=== PATIENT | male | born 1960 | race Caucasian/White ===

== ENCOUNTER 2017-05-15 02:30 | Emergency (ER) | payer OTHER ==
[~2017-05-15] VITALS: Ht 172.7 cm; Wt 65.8 kg
[~2017-05-15 02:30] MED LIST: ACIDOPHILUS1 EAC2 PO; CARAFATE 1 GM TA1 G1 PO; CIPROFLOXACIN500 M1 PO; DULCOLAX5 MG PO; FLEET ENEMA118 ML RC; FLEXERIL PO; HYDROCODONE-IB1 EACH PO; IBUPROFEN 800800 MG PO; NOHOMEMEDICATIONS; NORCO 5-325 TA1 EACH PO; OXYCODONE HCL 55 MG PO; OXYCODONE HCL5 M1 PO; PROTONIX40 M2 PO; VEETIDS 500500 MG; VICODIN 5-5001 EACH PO; VICOPROFEN 2001 EACH PO; VITAMIN B-12500 MCG PO; VITAMIN C500 MG/15 PO; ZANTAC 150MG T150 M1 PO
[2017-05-15] MEDS ORDERED: MILK THISTLE1 GM PO (02:41)
[2017-05-15] MEDS ORDERED: FISH OIL 1,001000 M2 PO (02:41)
[2017-05-15] MEDS ORDERED: B COMPLEX1 EACH PO (02:41)
[2017-05-15] MEDS ORDERED: NAPROSYN500 MG PO (03:39)
[2017-05-15 03:48] VITALS: BP 142/88
== END 2017-05-15 03:50 | disposition home or self-care (01) ==
LOC: ER 02:30
DX: S20.212A Contusion of left front wall of thorax, initial encounter (principal); K59.00 Constipation, unspecified; Z59.0 Homelessness; F10.99 Alcohol use, unspecified with unspecified alcohol-induced disorder; J44.9 Chronic obstructive pulmonary disease, unspecified; G89.29 Other chronic pain; M54.9 Dorsalgia, unspecified; Z86.19 Personal history of other infectious and parasitic diseases; Z88.6 Allergy status to analgesic agent; Z88.8 Allergy status to other drugs, medicaments and biological substances; W18.39XA Other fall on same level, initial encounter; Y93.89 Activity, other specified; Y92.89 Other specified places as the place of occurrence of the external cause; Y99.8 Other external cause status

== ENCOUNTER 2017-12-03 00:25 | Emergency (ER) | payer OTHER ==
[~2017-12-03] VITALS: Ht 172.7 cm; Wt 65.8 kg
[~2017-12-03 00:25] MED LIST changes: +B COMPLEX1 EACH PO; +FISH OIL 1,001000 M2 PO; +MILK THISTLE1 GM PO; +NAPROSYN500 MG PO; +TRAMADOL 50 MG50 MG PO
[2017-12-03 02:42] VITALS: BP 132/60
== END 2017-12-03 02:44 | disposition home or self-care (01) ==
LOC: ER 00:25
DX: F10.129 Alcohol abuse with intoxication, unspecified (principal); J44.9 Chronic obstructive pulmonary disease, unspecified; G89.29 Other chronic pain; M54.9 Dorsalgia, unspecified; M25.511 Pain in right shoulder; Z87.891 Personal history of nicotine dependence; Z88.6 Allergy status to analgesic agent; Z88.8 Allergy status to other drugs, medicaments and biological substances

== ENCOUNTER 2017-12-10 22:30 | Emergency (ER) | payer OTHER ==
[~2017-12-10] VITALS: Ht 172.7 cm; Wt 68.0 kg
[2017-12-11] MEDS ORDERED: FLEXERIL PO (00:22)
[2017-12-11 00:58] VITALS: BP 109/78
== END 2017-12-11 01:05 | disposition home or self-care (01) ==
LOC: ER 22:30
DX: S70.02XA Contusion of left hip, initial encounter (principal); S70.12XA Contusion of left thigh, initial encounter; J44.9 Chronic obstructive pulmonary disease, unspecified; I10 Essential (primary) hypertension; M54.9 Dorsalgia, unspecified; G89.29 Other chronic pain; Z87.891 Personal history of nicotine dependence; Z88.1 Allergy status to other antibiotic agents; W10.9XXA Fall (on) (from) unspecified stairs and steps, initial encounter; Y93.89 Activity, other specified; Y92.89 Other specified places as the place of occurrence of the external cause; Y99.8 Other external cause status

== ENCOUNTER 2018-07-03 23:44 | Emergency (ER) | payer OTHER ==
[~2018-07-03] VITALS: Ht 172.7 cm; Wt 65.8 kg
[2018-07-04] MEDS ORDERED: IBUPROFEN 600600 M1 PO (00:05)
[2018-07-04 05:58] VITALS: BP 132/76
== END 2018-07-04 06:11 | disposition home or self-care (01) ==
LOC: ER 23:44
DX: M54.42 Lumbago with sciatica, left side (principal); M54.41 Lumbago with sciatica, right side; J44.9 Chronic obstructive pulmonary disease, unspecified; I10 Essential (primary) hypertension; Z87.891 Personal history of nicotine dependence; Z88.6 Allergy status to analgesic agent; Z88.8 Allergy status to other drugs, medicaments and biological substances; Z86.19 Personal history of other infectious and parasitic diseases

== ENCOUNTER 2018-11-13 16:39 | Emergency (ER) | payer OTHER ==
[~2018-11-13] VITALS: Ht 172.7 cm; Wt 68.0 kg
[~2018-11-13 16:39] MED LIST changes: +IBUPROFEN 600600 M1 PO
[2018-11-13 17:25] VITALS: BP 120/69
== END 2018-11-13 17:30 | disposition home or self-care (01) ==
LOC: ER 16:39
DX: S00.81XA Abrasion of other part of head, initial encounter (principal); F10.10 Alcohol abuse, uncomplicated; J44.9 Chronic obstructive pulmonary disease, unspecified; M54.9 Dorsalgia, unspecified; I10 Essential (primary) hypertension; M25.511 Pain in right shoulder; G89.29 Other chronic pain; Z88.6 Allergy status to analgesic agent; Z87.891 Personal history of nicotine dependence; Y04.2XXA Assault by strike against or bumped into by another person, initial encounter; Y92.89 Other specified places as the place of occurrence of the external cause; Y93.89 Activity, other specified; Y99.8 Other external cause status

== ENCOUNTER 2019-01-10 03:34 | Emergency (ER) | payer OTHER ==
[~2019-01-10] VITALS: Ht 172.7 cm; Wt 68.0 kg
[2019-01-10 05:45] VITALS: BP 126/82
== END 2019-01-10 05:47 | disposition home or self-care (01) ==
LOC: ER 03:34
DX: F10.129 Alcohol abuse with intoxication, unspecified (principal); J44.9 Chronic obstructive pulmonary disease, unspecified; M54.9 Dorsalgia, unspecified; M25.511 Pain in right shoulder; G89.29 Other chronic pain; I10 Essential (primary) hypertension; Z87.891 Personal history of nicotine dependence; Z88.6 Allergy status to analgesic agent; Z88.8 Allergy status to other drugs, medicaments and biological substances

== ENCOUNTER 2019-02-15 13:35 | Emergency (ER) | payer OTHER ==
[~2019-02-15] VITALS: Ht 172.7 cm; Wt 65.8 kg
[2019-02-15 14:13] LABS: URINE BILIRUBIN NEGATIVE (Negative); URINE BLOOD NEGATIVE (Negative); URINE CLARITY CLEAR; URINE COLOR YELLOW; URINE GLUCOSE-RANDOM* NEGATIVE (Negative); URINE KETONES NEGATIVE (Negative); URINE LEUKOCYTES-REFLEX NEGATIVE (Negative); URINE NITRITE-REFLEX NEGATIVE (Negative); URINE PROTEIN (DIPSTICK) NEGATIVE (Negative); URINE UROBILINOGEN 0.2 E.U./dl (0.2-1.0)
[2019-02-15 14:13] LABS: HEMATOCRIT 48.4 % (42.0-52.0); HEMOGLOBIN 16.6 gm/dL (14.0-18.0); MCH 32.1 pg (26.0-34.0); MCHC 34.3 g/dL (28.0-37.0); MCV 93.7 fL (80.0-100.0); PLATELET COUNT 188 thou/uL (150-400); RBC 5.17 mil/uL (4.50-6.00); RDW 14.3 % (10.5-14.5); WBC 4.6 thou/uL (4.0-11.0)
[2019-02-15 14:20] LABS: CREATININE 0.7 mg/dL (0.7-1.3); POTASSIUM 4.2 mmol/L (3.5-5.1)
[2019-02-15 14:26] LABS: ALBUMIN 3.7 g/dL (3.4-5.0); TOTAL BILIRUBIN 0.9 mg/dL (<0.1-1.0); TOTAL PROTEIN 7.5 g/dL (6.4-8.2)
[2019-02-15 14:50] LABS: ABSOLUTE NEUTROPHILS 2.5 thou/uL (1.4-8.2); PLATELET ESTIMATE NORMAL
[2019-02-15 15:24] VITALS: BP 135/88
== END 2019-02-15 15:24 | disposition home or self-care (01) ==
LOC: ER 13:35
PROVIDERS: Emergency Medicine
DX: R10.9 Unspecified abdominal pain (principal); J44.9 Chronic obstructive pulmonary disease, unspecified; G89.29 Other chronic pain; I10 Essential (primary) hypertension; Z87.891 Personal history of nicotine dependence; Z88.6 Allergy status to analgesic agent; Z88.8 Allergy status to other drugs, medicaments and biological substances; Z86.19 Personal history of other infectious and parasitic diseases

== ENCOUNTER 2019-03-10 19:07 | Emergency (ER) | payer OTHER ==
[~2019-03-10] VITALS: Ht 172.7 cm; Wt 65.8 kg
[2019-03-10 19:08] VITALS: BP 139/103
[2019-03-10] MEDS ORDERED: ULTRAM 50MG TAB50 MG PO (20:23)
== END 2019-03-10 20:57 | disposition home or self-care (01) ==
LOC: ER 19:07
DX: S92.352A Displaced fracture of fifth metatarsal bone, left foot, initial encounter for closed fracture (principal); M54.6 Pain in thoracic spine; M25.511 Pain in right shoulder; G89.29 Other chronic pain; J44.9 Chronic obstructive pulmonary disease, unspecified; I10 Essential (primary) hypertension; Z88.6 Allergy status to analgesic agent; Z88.8 Allergy status to other drugs, medicaments and biological substances; Z87.891 Personal history of nicotine dependence; W18.39XA Other fall on same level, initial encounter; Y93.01 Activity, walking, marching and hiking; Y92.89 Other specified places as the place of occurrence of the external cause; Y99.8 Other external cause status

== ENCOUNTER 2019-11-16 15:14 | Emergency (ER) | payer OTHER ==
[~2019-11-16] VITALS: Ht 172.7 cm; Wt 68.0 kg
[~2019-11-16 15:14] MED LIST changes: +ULTRAM 50MG TAB50 MG PO
[2019-11-16] MEDS ORDERED: ULTRAM 50MG TAB50 MG PO (15:47)
[2019-11-16 16:05] VITALS: BP 125/79
== END 2019-11-16 16:00 | disposition home or self-care (01) ==
LOC: ER 15:14
DX: S46.002A Unspecified injury of muscle(s) and tendon(s) of the rotator cuff of left shoulder, initial encounter (principal); J44.9 Chronic obstructive pulmonary disease, unspecified; I10 Essential (primary) hypertension; G89.29 Other chronic pain; Z79.899 Other long term (current) drug therapy; Z88.6 Allergy status to analgesic agent; Z88.8 Allergy status to other drugs, medicaments and biological substances; Z87.891 Personal history of nicotine dependence; W18.09XA Striking against other object with subsequent fall, initial encounter; Y93.89 Activity, other specified; Y92.89 Other specified places as the place of occurrence of the external cause; Y99.8 Other external cause status

== ENCOUNTER 2020-07-23 20:14 | Emergency (ER) | payer OTHER ==
[~2020-07-23] VITALS: Ht 172.7 cm; Wt 68.0 kg
[2020-07-24 05:27] VITALS: BP 116/84
== END 2020-07-24 05:28 | disposition home or self-care (01) ==
LOC: ER 20:14
DX: F10.10 Alcohol abuse, uncomplicated (principal); R47.81 Slurred speech; I10 Essential (primary) hypertension; J44.9 Chronic obstructive pulmonary disease, unspecified; Z79.899 Other long term (current) drug therapy; Z88.8 Allergy status to other drugs, medicaments and biological substances; Z87.891 Personal history of nicotine dependence

== ENCOUNTER 2021-07-22 22:30 | Emergency (ER) | payer OTHER ==
[~2021-07-22] VITALS: Ht 172.7 cm; Wt 68.0 kg
--- NOTE | ~2021-07-22 | EMS ---
[address] [address] EMS Patient Care Report Name: QUINTEN ZELAYA Room #: DEP EDVIN Rodrigues#: [id number] Admission: 07/22/21 Attend Phys: Discharge: 07/23/21 Date of : 58 Report #: [id number] THIS REPORT FOR: //name// Report Transmitted: 07/23/2021 01:35 EMS Care Summary [facility] [place] Incident [id number] @ 07/22/2021 21:57 Incident Location [address] [place] [address] Patient Quinten Zelaya Male, 61 Years 1960 Patient Address [address] [place] [address] Patient History Unspecified abdominal hernia,Cerebral infarction, unspecified,Hypertension (HTN),Cirrhosis of Liver, Patient Allergies , Chief Complaint Abdominal pain/discomfort Disposition Transported No Lights/[place] Dispatch Reason Sick Person Transported To [facility] Narrative [facility] dispatched to the stated location on a patient complaining of liver pain and respiratory distress. Upon arrival, EMS noted a male patient standing at the corner of the intersection. He appeared to be awake and alert to his surroundings with a GCS of 15, tracking EMS as they approached. A primary exam was performed and revealed a patent airway, spontaneous breathing, and self [address] [address] EMS Patient Care Report Name: QUINTEN ZELAYA Room #: DEP Nalini#: [id number] Admission: 07/22/21 Attend Phys: Discharge: 07/23/21 Date of : 58 Report #: [id number] maintained circulation. The patient states that he has been dizzy all day, and has pain in his liver. He also states that he is suffering from back pain, a sprained ankle, and a hernia. The patient ambulated to the back of the ambulance and seated himself on the cot, where he was secured with all necessary straps and side rails. Inside the ambulance, baseline vital signs were obtained and past medical history obtained. The patient was very hard of hearing, and EMS could only communicate through writing questions down on paper for the patient to read and respond to. The patient states that he is homeless and very cold, due to being outside all day. A physical exam was performed and is as noted. EMS attempted to place the patient on the campus monitor, but could not obtain a reading due to excessive artifact and patient movement. The patient was continuously monitored while en route to the receiving facility and remained stable for the duration of the trip. Upon arrival at the receiving facility, the patient's signature was obtained and witnessed by EMS. The patient was unloaded from the ambulance and taken inside the ED to triage where he was assisted off the cot and into a wheelchair. Verbal report was given to the receiving nurse and patient care was turned over with no significant change in the patient's condition. All required signatures were obtained and witnessed by EMS. [facility] 308 cleared the call and returned to service. END. Initial Vitals @22:04SpO2: 92, @22:05SpO2: 97, @22:24 @22:04P: 120,R: 16,BP: 163/112, @22:05P: 114,R: 16,BP: 162/106, @22:20P: 111,R: 16,BP: 184/108, @22:04GCS: 15, @22:05GCS: 15, @22:20GCS: 15, @22:01 Assessments @22:01MENTAL:SKIN:HEENT:LUNG SOUNDS:ABDOMEN:PELVIS//GI:EXTREMITIES:PULSE:NEURO: Impression Acute Pain, not elsewhere classified Procedures @22:24 3-Lead ECG Response: UnchangedSucceeded Timeline 21:55,Call Received 21:55,Dispatch Notified [address] [address] EMS Patient Care Report Name: QUINTEN ZELAYA Pee[place]e [id number] Admission: 07/22/21 Attend Phys: Discharge: 07/23/21 Date of : 58 Report #: [id number] 21:55,[facility] Call 21:57,Dispatched 21:58,En Route 22:00,On Scene 22:01,At Patient 22:01,BP: / M,PULSE: ,RR: R,SPO2: Ox,ETCO2: ,BG: ,PAIN: ,GCS: , 22:04,BP: / M,PULSE: ,RR: R,SPO2: 92 Ox,ETCO2: ,BG: ,PAIN: ,GCS: , 22:04,BP: 163/112 M,PULSE: 120,RR: 16 R,SPO2: Ox,ETCO2: ,BG: ,PAIN: ,GCS: , 22:04,BP: / M,PULSE: ,RR: R,SPO2: Ox,ETCO2: ,BG: ,PAIN: ,GCS: 15, 22:04,Depart Scene 22:05,BP: / M,PULSE: ,RR: R,SPO2: 97 Ox,ETCO2: ,BG: ,PAIN: ,GCS: , 22:05,BP: 162/106 M,PULSE: 114,RR: 16 R,SPO2: Ox,ETCO2: ,BG: ,PAIN: ,GCS: , 22:05,BP: / M,PULSE: ,RR: R,SPO2: Ox,ETCO2: ,BG: ,PAIN: ,GCS: 15, 22:20,BP: 184/108 M,PULSE: 111,RR: 16 R,SPO2: Ox,ETCO2: ,BG: ,PAIN: ,GCS: , 22:20,BP: / M,PULSE: ,RR: R,SPO2: Ox,ETCO2: ,BG: ,PAIN: ,GCS: 15, 22:24,3-Lead ECG,Response: UnchangedSucceeded, 22:24,BP: / M,PULSE: ,RR: R,SPO2: Ox,ETCO2: ,BG: ,PAIN: ,GCS: , 22:27,At Destination 22:43,Call Closed Disclaimer v1.1 Copyright 2021 [employer] This EMS Care Summary contains data elements from the applicable legal record (which may be displayed differently). It is designed to provide pertinent information for the following purposes: continuity of care, clinical quality, and state data reporting. The complete legal record is available to ED staff and administrators of the receiving hospital in [employer] Patient Tracker. All data is provided "as is."
[2021-07-22 22:33] VITALS: BP 130/93
[2021-07-22 23:36] LABS: ABSOLUTE NEUTROPHILS 8.6 thou/uL (1.4-8.2); BASOPHILS 0.5 % (0.0-2.0); EOSINOPHILS 0.4 % (0.0-3.0); HEMOGLOBIN 15.1 gm/dL (14.0-18.0); LYMPHOCYTES 4.6 % (24.0-44.0); MCH 32.1 pg (26.0-34.0); MCHC 32.8 g/dL (28.0-37.0); MCV 97.9 fL (80.0-100.0); MONOCYTES 5.9 % (1.0-8.0); PLATELET COUNT 324 thou/uL (150-400); POLYS 88.6 % (36.0-66.0); RDW 14.1 % (10.5-14.5); WBC 9.7 thou/uL (4.0-11.0)
[2021-07-22 23:46] LABS: CALCIUM 9.1 mg/dL (8.5-10.1); CREATININE 0.9 mg/dL (0.7-1.3); POTASSIUM 5.1 mmol/L (3.5-5.1)
[2021-07-22 23:55] LABS: ALBUMIN 3.3 g/dL (3.4-5.0); TOTAL BILIRUBIN 0.5 mg/dL (0.2-1.0)
[2021-07-23] MEDS ORDERED: PEPCID20 MG PO (00:14)
[2021-07-23] MEDS ORDERED: ONDANSETRON HCL4 M2 PO (00:14)
[2021-07-23] MEDS ORDERED: NAPROXEN SODIU220 M2 PO (00:14)
== END 2021-07-23 00:36 | disposition home or self-care (01) ==
LOC: ER 22:30
PROVIDERS: Emergency Medicine
DX: R10.11 Right upper quadrant pain (principal); J44.9 Chronic obstructive pulmonary disease, unspecified; I10 Essential (primary) hypertension; Z88.6 Allergy status to analgesic agent; Z87.891 Personal history of nicotine dependence

== ENCOUNTER 2021-07-26 16:39 | Emergency (ER) | payer OTHER ==
[~2021-07-26] VITALS: Ht 172.7 cm; Wt 68.0 kg
[~2021-07-26 16:39] MED LIST changes: +NAPROXEN SODIU220 M2 PO; +ONDANSETRON HCL4 M2 PO; +PEPCID20 MG PO
[2021-07-26 16:40] VITALS: BP 143/108
[2021-07-26 17:12] LABS: ABSOLUTE NEUTROPHILS 3.2 thou/uL (1.4-8.2); BASOPHILS 0.2 % (0.0-2.0); EOSINOPHILS 2.7 % (0.0-3.0); HEMATOCRIT 43.8 % (42.0-52.0); HEMOGLOBIN 14.6 gm/dL (14.0-18.0); LYMPHOCYTES 27.9 % (24.0-44.0); MCH 31.9 pg (26.0-34.0); MCHC 33.2 g/dL (28.0-37.0); MCV 95.8 fL (80.0-100.0); MONOCYTES 12.4 % (1.0-8.0); PLATELET COUNT 368 thou/uL (150-400); POLYS 56.8 % (36.0-66.0); RBC 4.57 mil/uL (4.50-6.00); RDW 14.2 % (10.5-14.5); WBC 5.7 thou/uL (4.0-11.0)
[2021-07-26 17:19] LABS: ANION GAP 12 mmol/L (7-16); BUN 12 mg/dL (7-18); CALCIUM 8.4 mg/dL (8.5-10.1); CHLORIDE 101 mmol/L (98-107); CO2 23 mmol/L (21-32); CREATININE 0.8 mg/dL (0.7-1.3); GLUCOSE 118 mg/dL (74-106); POTASSIUM 3.7 mmol/L (3.5-5.1); SODIUM 136 mmol/L (136-145)
[2021-07-26 17:21] LABS: URINE BILIRUBIN NEGATIVE (Negative); URINE BLOOD NEGATIVE (Negative); URINE CLARITY SL CLOUDY; URINE COLOR YELLOW; URINE GLUCOSE-RANDOM* NEGATIVE (Negative); URINE KETONES NEGATIVE (Negative); URINE PROTEIN (DIPSTICK) NEGATIVE (Negative); URINE UROBILINOGEN 0.2 E.U./dl (0.2-1.0)
[2021-07-26 17:25] LABS: ALBUMIN 3.2 g/dL (3.4-5.0); SGOT 276 U/L (15-37); SGPT 231 U/L (30-65); TOTAL BILIRUBIN 0.5 mg/dL (0.2-1.0); TOTAL PROTEIN 6.8 g/dL (6.4-8.2)
[2021-07-26 17:32] LABS: URINE LEUKOCYTES-REFLEX 1+ (Negative); URINE NITRITE-REFLEX POSITIVE (Negative)
[2021-07-26 17:37] LABS: BACTERIA-REFLEX >30 Many /HPF (None Seen); CASTS None Seen /LPF (None Seen); CRYSTALS None Seen /LPF (None Seen); SQUAMOUS 0-3 Few /LPF (0-3); URINE RBC 1-2 Rare /HPF (NONE SEEN); WBC CLUMPS Few (None Seen)
[2021-07-26 17:39] LABS: SALICYLATE < 2.8 mg/dL (2.8-20.0)
[2021-07-26 17:42] LABS: AMP/METHAMP Negative (Negative); BARBITURATES Negative (Negative); BENZODIAZEPINES POSITIVE (Negative); COCAINE Negative (Negative); METHADONE Negative (Negative); OPIATES Negative (Negative); PCP Negative (Negative)
[2021-07-26] MEDS ORDERED: BACTRIM DS TAB1 EACH PO (18:04)
[2021-07-30] MEDS ORDERED: MACROBID 100 M100 M1 PO (12:06)
== END 2021-07-26 18:17 | disposition home or self-care (01) ==
LOC: ER 16:39
PROVIDERS: Physician Assistant
DX: N39.0 Urinary tract infection, site not specified (principal); F10.20 Alcohol dependence, uncomplicated; Y90.9 Presence of alcohol in blood, level not specified; R74.8 Abnormal levels of other serum enzymes; J44.9 Chronic obstructive pulmonary disease, unspecified; I10 Essential (primary) hypertension; Z87.891 Personal history of nicotine dependence; Z88.6 Allergy status to analgesic agent